=== PATIENT | male | born 1985 | race Asian ===

== ENCOUNTER 2017-08-19 21:30 | Emergency (ER) | payer OTHER ==
[~2017-08-19] VITALS: Ht 182.9 cm; Wt 77.1 kg
[2017-08-19 22:47] VITALS: BP 131/69
== END 2017-08-19 22:35 | disposition home or self-care (01) ==
LOC: ED 21:30
DX: M79.89 Other specified soft tissue disorders (principal); M70.21 Olecranon bursitis, right elbow